=== PATIENT | male | born 1945 | race Caucasian/White ===

== ENCOUNTER → 2021-06-22 09:50 | Outpatient (BNVA) | payer MEDICARE, BC, SELFPAY | PROVIDERS: PCP Internal Medicine; Visit Provider Psychiatry & Neurology Neurology | DX: G20 Parkinson's disease (principal); F32.A Depression, unspecified; Z79.899 Other long term (current) drug therapy | CPT/HCPCS: 99212 ==

== ENCOUNTER → 2021-12-21 09:16 | Outpatient (BNVA) | payer MEDICARE, BC, SELFPAY | PROVIDERS: PCP Internal Medicine; Visit Provider Psychiatry & Neurology Neurology | DX: G20 Parkinson's disease (principal); F32.A Depression, unspecified | CPT/HCPCS: 99212 ==

== ENCOUNTER → 2022-06-28 09:17 | Outpatient (BNVA) | payer MEDICARE, BC, SELFPAY | PROVIDERS: PCP Internal Medicine; Visit Provider Psychiatry & Neurology Neurology | DX: G20 Parkinson's disease (principal); F32.A Depression, unspecified | CPT/HCPCS: 99212 ==

== ENCOUNTER 2022-10-31 08:55 | Outpatient (AMB) | payer MEDICARE, BC, SELFPAY ==
--- NOTE | 2022-10-31 09:04 | A.OFFVIS_ITS ---
Intake Vital Signs 10/31/22 09:05 Height 6 ft Weight 218 lb 4 oz BMI 29.6 BP 124/88 Blood Pressure Location Rt brachial Position Sitting Pulse 63 Pulse Source Pulse Oximeter Pulse Oximetry (%) 96 Intake Visit Reasons: 4m follow up Parkinson's-lvm Intake Note: Patient presents for 4 month follow up Allergies No Known Allergies Allergy (Verified 10/31/22 09:06) Medication List - Last Reconciled 10/31/22 by Nadeen Dick MD aspirin 81 mg PO DAILY carbidopa-levodopa 25-100 mg (Sinemet) 1.5 tabs PO QID 90 days hydrochlorothiazide 25 mg PO DAILY simvastatin 20 mg PO BEDTIME valsartan-hydrochlorothiazide 320-25 mg 1 tab PO DAILY vitamin B complex (B Complex-Vitamin B12 tablet) 1 tab PO DAILY HPI HPI Comments History of Present Illness Details 77-year-old male with 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 Mood is stable . He has mild word finding issues. He has noticed mild increase in his tremors on his right upper extremity. The tremors are mostly at rest but can be with posture and action as well. But it does not bother him or affect his ADLs. He also reports of feeling of loss of balance when turning quickly. No falls. He denies any trouble with speech, with walking, he exercises regularly. He denies any REM behavior disorder. He denies any trouble with his dressing or showering or using the utensils. he has mild trouble with handwriting. He has denies any trouble with a drooling. No falls he walks 2-3 miles a day he denies history of mood disorder however it last winter according to his he was mildly depressed he did not take any medications. He denies any change in bowel movements denies constipation. He has mild memory issues but his is not concerned. [facility] Medical History Depression GERD (gastroesophageal reflux disease) Herpes zoster HTN (hypertension) Hyperlipemia Parkinson's disease Prediabetes Vitamin D deficiency Surgical History No pertinent past surgical history Family History Mother HTN (hypertension) Borderline diabetes Social History Household Members: Spouse Household Members Other:: Sussy- Alcohol intake: current Alcohol intake frequency: a few times a week Alcohol type: beer Patient Tobacco Use Status: Never used Tobacco Current occupational status: retired Physical Exam Vital Signs: Last Vital Signs Pulse 63 10/31/22 09:05 BP 124/88 10/31/22 09:05 Pulse Ox 96 10/31/22 09:05 BMI result Body Mass Index 29.6 Const Orientation/consciousness: patient oriented x3 Neuro Other: UPDRS - 3 Speech 0-normal 1-Slight loss of expression,diction or volume 2.Monotone,slurred but understandable,moderately impaired 3.Marked impairment,difficult to understand 4.Unintelligible Facial expression 0-normal 1-Minimal hypomimia, poker face 2-Slight but definite abnormal diminution of facial expression 3-Moderate hypomimia,lips parted some of the time 4-Masked or fixed facies withs evere loss of facialexpression, lips parted more than 1/4 inch Rest Tremors( head, Upper, lower ) 0- absent 1-Slight and infrequent 2-Mild in amplitude and persistent 3-Moderate in amplitude and present most of the time- Right UE 4-Marked amplitude and present most of the time Action and Postural tremors 0-none 1-Slight with action 2-Moderate with action- RUE 3-Moderate with posture and action 4-Marked , interferes with feeding Rigidity 0-Absent 1-Slight or detectable only when activated by mirror movements 2-Mild to Moderate-RUE 3-Marked, but full ROM achieved 4-Severe, range of motion achieved with difficulty Finger Taps 0-normal 1-Mild slowing an d or reduction in amplitude- R>L 2-Moderately impaired. Early fatiguing and occasional arrests in movement 3-Severely impaired. Frequent hesitation in initiating movements or arrests in ongoing movement. 4-can barely perform the task Hand movements 0-normal 1-mild slowing and or reduction in amplitude r>L 2-Moderately impaired.Definite and early fatiguing, may have occasional arrests in movement. 3-Severely impaired.Frequent hesitation in initiating or arrests in movement. 4-can barely perform the task Rapid Alternating Movements of Hands 0-normal 1-Mild slowing and or reduction in amplitude 2-Moderately impaired.Definite and early fatiguing. 2-Moderately impaired. Definite and early fatiguing. May have occasional arrests in movement. 3-severely impaired.Frequent hesitation in initiating movements or arrests in ongoing movement. 4-can barely perform the task Leg agility 0-normal 1-mild slowing and reduction in amplitude R>L 2-moderately impaired.Definite and early fatiguing , may have occasional arrest in movement. 3-severely impaired.Frequent hesitation in initiating movements or arrests in ongoing movement. 4-can barely perform the task Arising from a chair 0-Normal 1-Slow or may need more than 1 attempt 2-Pushes self up from arms of seat 3-Tends to fall back and may have to try more than one time,but can get up without difficulty 4-Unable to stand without help Posture 0-normal 1-slightly stooped, could be normal for an older person 2-moderately stooped posture, definitely abnormal, can be leaning to one side 3-severely stooped posture with kyphosis, can be moderately leaning to one side 4-Marked flexion with extreme abnormal posture Gait 0-normal- decreased arm swing R>L 1-walks slowly,may shuffle with short steps, but no festination or propulsion 2-walks with difficulty,but requires little or no assistance, may have short steps, festination or propulsion 3-severe, needs assistance 4-cannot walk even with assistance Postural stability 0-normal 1-retropulsion but recovers unaided 2-absence of postural response,will fail if not caught by the examiner 3-very unstable,tends to lose balance spontaneously 4-unable to stand without assistance Body bradykinesia and hypokinesia 0-none 1-minimal slowness,giving movement a deliberate character,could be normal for some persons.Possible reduced amplitude 2-Mild degree of slowness and poverty of movement or some reduced amplitude 3-moderate slowness,poverty or small amplitude of movement 4-marked slowness, poverty or small amplitude of movement. SCORE 14 General: patient oriented x3 Assessment & Plan Assessment & Plan (1) Parkinson's disease: Code(s): G20 - Parkinson's disease (2) Depression: Code(s): F32.A - Depression, unspecified Plan Carbidopa/levodopa 25/100 1.5 tabs qid Will consider adding antidepressant like Celexa or Lexapro and future for his mood disorder. Continue exercise. Medications: Refilled carbidopa-levodopa 25-100 mg (Sinemet) 1.5 tabs PO QID 540 tabs 3RF 90 days Coding Level of Care Code Est Pt Level 4 (39583) Diagnoses Parkinson's disease G20 Depression F32.A
[2022-10-31 09:05] VITALS: BP 124/88; PULSE 63; O2SAT 96; BMI 29.6
== END 2022-10-31 09:23 | disposition home or self-care (01) ==
PROVIDERS: Visit Provider Psychiatry & Neurology Neurology
DX: G20 Parkinson's disease (principal); F32.A Depression, unspecified
CPT/HCPCS: 99214

== ENCOUNTER → 2022-10-31 08:55 | Outpatient (BNVA) | payer MEDICARE, BC, SELFPAY | PROVIDERS: Visit Provider Psychiatry & Neurology Neurology | DX: G20 Parkinson's disease (principal); F32.A Depression, unspecified | CPT/HCPCS: 99212 ==

== ENCOUNTER 2023-03-07 10:20 | Outpatient (AMB) | payer MEDICARE, BC, SELFPAY ==
--- NOTE | 2023-03-07 10:39 | MHC.OFFVIS ---
Intake Vital Signs 03/07/23 10:40 Height 6 ft Weight 220 lb BMI 29.8 BP 120/78 Blood Pressure Location Lt brachial Position Sitting Respiration 16 Pulse 66 Pulse Source Pulse Oximeter Pulse Oximetry (%) 96 Oxygen Delivery Method Room Air Intake Visit Reasons: 4m follow up Parkinson's - Confirmed Intake Note: Pt presents to the office for a 4 month follow up for Parkinson's. 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 Mood is stable . He has mild word finding issues. He has noticed mild increase in his tremors on his right upper extremity. The tremors are mostly at rest but can be with posture and action as well. But it does not bother him or affect his ADLs. He also reports of feeling of loss of balance when turning quickly. No falls. He denies any trouble with speech, with walking, he exercises regularly. He denies any REM behavior disorder. He denies any trouble with his dressing or showering or using the utensils. he has mild trouble with handwriting. He has denies any trouble with a drooling. No falls he walks 2-3 miles a day he denies history of mood disorder however it last winter according to his he was mildly depressed he did not take any medications. He denies any change in bowel movements denies constipation. He has mild memory issues but his is not concerned. [facility] Medical History Herpes zoster Depression Parkinson's disease GERD (gastroesophageal reflux disease) Hyperlipemia Vitamin D deficiency Prediabetes HTN (hypertension) Surgical History No pertinent past surgical history Family History Mother HTN (hypertension) Borderline diabetes Social History Household Members: Spouse Household Members Other:: Sussy- Alcohol intake: current Alcohol intake frequency: a few times a week Alcohol type: beer Patient Tobacco Use Status: Never used Tobacco Current occupational status: retired Physical Exam Vital Signs: Last Vital Signs Pulse 66 03/07/23 10:40 Resp 16 03/07/23 10:40 BP 120/78 03/07/23 10:40 Pulse Ox 96 03/07/23 10:40 Oxygen Delivery Method Room Air 03/07/23 10:40 BMI result Body Mass Index 29.8 Const Orientation/consciousness: patient oriented x3 Neuro Other: UPDRS - 3 Speech 0-normal 1-Slight loss of expression,diction or volume 2.Monotone,slurred but understandable,moderately impaired 3.Marked impairment,difficult to understand 4.Unintelligible Facial expression 0-normal 1-Minimal hypomimia, poker face 2-Slight but definite abnormal diminution of facial expression 3-Moderate hypomimia,lips parted some of the time 4-Masked or fixed facies withs evere loss of facialexpression, lips parted more than 1/4 inch Rest Tremors( head, Upper, lower ) 0- absent 1-Slight and infrequent 2-Mild in amplitude and persistent 3-Moderate in amplitude and present most of the time- Right UE 4-Marked amplitude and present most of the time Action and Postural tremors 0-none 1-Slight with action 2-Moderate with action- RUE 3-Moderate with posture and action 4-Marked , interferes with feeding Rigidity 0-Absent 1-Slight or detectable only when activated by mirror movements 2-Mild to Moderate-RUE 3-Marked, but full ROM achieved 4-Severe, range of motion achieved with difficulty Finger Taps 0-normal 1-Mild slowing an d or reduction in amplitude- R>L 2-Moderately impaired. Early fatiguing and occasional arrests in movement 3-Severely impaired. Frequent hesitation in initiating movements or arrests in ongoing movement. 4-can barely perform the task Hand movements 0-normal 1-mild slowing and or reduction in amplitude r>L 2-Moderately impaired.Definite and early fatiguing, may have occasional arrests in movement. 3-Severely impaired.Frequent hesitation in initiating or arrests in movement. 4-can barely perform the task Rapid Alternating Movements of Hands 0-normal 1-Mild slowing and or reduction in amplitude 2-Moderately impaired.Definite and early fatiguing. 2-Moderately impaired. Definite and early fatiguing. May have occasional arrests in movement. 3-severely impaired.Frequent hesitation in initiating movements or arrests in ongoing movement. 4-can barely perform the task Leg agility 0-normal 1-mild slowing and reduction in amplitude R>L 2-moderately impaired.Definite and early fatiguing , may have occasional arrest in movement. 3-severely impaired.Frequent hesitation in initiating movements or arrests in ongoing movement. 4-can barely perform the task Arising from a chair 0-Normal 1-Slow or may need more than 1 attempt 2-Pushes self up from arms of seat 3-Tends to fall back and may have to try more than one time,but can get up without difficulty 4-Unable to stand without help Posture 0-normal 1-slightly stooped, could be normal for an older person 2-moderately stooped posture, definitely abnormal, can be leaning to one side 3-severely stooped posture with kyphosis, can be moderately leaning to one side 4-Marked flexion with extreme abnormal posture Gait 0-normal- decreased arm swing R>L 1-walks slowly,may shuffle with short steps, but no festination or propulsion 2-walks with difficulty,but requires little or no assistance, may have short steps, festination or propulsion 3-severe, needs assistance 4-cannot walk even with assistance Postural stability 0-normal 1-retropulsion but recovers unaided 2-absence of postural response,will fail if not caught by the examiner 3-very unstable,tends to lose balance spontaneously 4-unable to stand without assistance Body bradykinesia and hypokinesia 0-none 1-minimal slowness,giving movement a deliberate character,could be normal for some persons.Possible reduced amplitude 2-Mild degree of slowness and poverty of movement or some reduced amplitude 3-moderate slowness,poverty or small amplitude of movement 4-marked slowness, poverty or small amplitude of movement. SCORE 14 General: patient oriented x3 Assessment & Plan Assessment & Plan (1) Parkinson's disease: Code(s): G20 - Parkinson's disease (2) Depression: Comment: stable Code(s): F32.A - Depression, unspecified Plan Carbidopa/levodopa 25 1.5 tabs qid - does not want to increase. Will consider adding antidepressant like Celexa or Lexapro and future for his mood disorder. Continue exercise. Coding Level of Care Code Est Pt Level 4 (03491) Diagnoses Parkinson's disease G20 Depression F32.A
[2023-03-07 10:40] VITALS: BP 120/78; PULSE 66; RESP 16; O2SAT 96; BMI 29.8
== END 2023-03-07 10:50 | disposition home or self-care (01) ==
PROVIDERS: PCP Internal Medicine; Visit Provider Psychiatry & Neurology Neurology
DX: G20.A1 Parkinson's disease without dyskinesia, without mention of fluctuations (principal); F32.A Depression, unspecified
CPT/HCPCS: 99214

== ENCOUNTER → 2023-03-07 10:20 | Outpatient (BNVA) | payer MEDICARE, BC, SELFPAY | PROVIDERS: PCP Internal Medicine; Visit Provider Psychiatry & Neurology Neurology | DX: G20.A1 Parkinson's disease without dyskinesia, without mention of fluctuations (principal); F32.A Depression, unspecified | CPT/HCPCS: 99212 ==

== ENCOUNTER 2023-09-05 09:52 | Outpatient (AMB) | payer MEDICARE, BC, SELFPAY ==
--- NOTE | 2023-09-05 09:53 | A.OFFVIS_ITS ---
Vital Signs 09/05/23 09:55 Height 6 ft Weight 223 lb BMI 30.2 BP 128/80 Blood Pressure Location Rt brachial Position Sitting Respiration 16 Pulse 68 Pulse Source Pulse Oximeter Pulse Oximetry (%) 98 Oxygen Delivery Method Room Air Intake Visit Reasons: 6 mnts f/u appt - LVM Intake Note: Pt presents for 6 month follow up for Parkinsons without dyskinesia or fluctuations. Legal Mediator Required: No Allergies No Known Allergies Allergy (Verified 09/05/23 09:54) HPI Comments Details: 77-year-old male with 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 He has noticed mild worsening of his symptoms.His gait is slower.He golfs gardens and walks . Mood is stable . He has mild word finding issues. He has noticed mild increase in his tremors on his right upper extremity. The tremors are mostly at rest but can be with posture and action as well. But it does not bother him or affect his ADLs. He also reports of feeling of loss of balance when turning quickly. No falls. He denies any trouble with speech, with walking, he exercises regularly. He denies any REM behavior disorder. He denies any trouble with his dressing or showering or using the utensils. he has mild trouble with handwriting. He has denies any trouble with a drooling. No falls he walks 2-3 miles a day he denies history of mood disorder however it last winter according to his he was mildly depressed he did not take any medications. He denies any change in bowel movements denies constipation. He has mild memory issues but his is not concerned. [facility] Medical History Parkinson's disease without dyskinesia or fluctuating manifestations Herpes zoster Depression GERD (gastroesophageal reflux disease) Hyperlipemia Vitamin D deficiency Prediabetes HTN (hypertension) Surgical History No pertinent past surgical history Family History Mother HTN (hypertension) Borderline diabetes Social History Household Members: Spouse Household Members Other:: Susys- Alcohol intake: current Alcohol intake frequency: a few times a week Alcohol type: beer Patient Tobacco Use Status: Never used Tobacco Current occupational status: retired Physical Exam Vital Signs: Last Vital Signs Pulse 68 09/05/23 09:55 Resp 16 09/05/23 09:55 BP 128/80 09/05/23 09:55 Pulse Ox 98 09/05/23 09:55 Oxygen Delivery Method Room Air 09/05/23 09:55 BMI result Body Mass Index 30.2 Const Orientation/consciousness: patient oriented x3 Neuro Other: UPDRS - 3 Speech 0-normal 1-Slight loss of expression,diction or volume 2.Monotone,slurred but understandable,moderately impaired 3.Marked impairment,difficult to understand 4.Unintelligible Facial expression 0-normal 1-Minimal hypomimia, poker face 2-Slight but definite abnormal diminution of facial expression 3-Moderate hypomimia,lips parted some of the time 4-Masked or fixed facies withs evere loss of facialexpression, lips parted more than 1/4 inch Rest Tremors( head, Upper, lower ) 0- absent 1-Slight and infrequent 2-Mild in amplitude and persistent 3-Moderate in amplitude and present most of the time- Right UE 4-Marked amplitude and present most of the time Action and Postural tremors 0-none 1-Slight with action 2-Moderate with action- RUE 3-Moderate with posture and action 4-Marked , interferes with feeding Rigidity 0-Absent 1-Slight or detectable only when activated by mirror movements 2-Mild to Moderate-RUE 3-Marked, but full ROM achieved 4-Severe, range of motion achieved with difficulty Finger Taps 0-normal 1-Mild slowing an d or reduction in amplitude- R>L 2-Moderately impaired. Early fatiguing and occasional arrests in movement 3-Severely impaired. Frequent hesitation in initiating movements or arrests in ongoing movement. 4-can barely perform the task Hand movements 0-normal 1-mild slowing and or reduction in amplitude r>L 2-Moderately impaired.Definite and early fatiguing, may have occasional arrests in movement. 3-Severely impaired.Frequent hesitation in initiating or arrests in movement. 4-can barely perform the task Rapid Alternating Movements of Hands 0-normal 1-Mild slowing and or reduction in amplitude 2-Moderately impaired.Definite and early fatiguing. 2-Moderately impaired. Definite and early fatiguing. May have occasional arrests in movement. 3-severely impaired.Frequent hesitation in initiating movements or arrests in ongoing movement. 4-can barely perform the task Leg agility 0-normal 1-mild slowing and reduction in amplitude R>L 2-moderately impaired.Definite and early fatiguing , may have occasional arrest in movement. 3-severely impaired.Frequent hesitation in initiating movements or arrests in ongoing movement. 4-can barely perform the task Arising from a chair 0-Normal 1-Slow or may need more than 1 attempt 2-Pushes self up from arms of seat 3-Tends to fall back and may have to try more than one time,but can get up without difficulty 4-Unable to stand without help Posture 0-normal 1-slightly stooped, could be normal for an older person 2-moderately stooped posture, definitely abnormal, can be leaning to one side 3-severely stooped posture with kyphosis, can be moderately leaning to one side 4-Marked flexion with extreme abnormal posture Gait 0-normal- decreased arm swing R>L 1-walks slowly,may shuffle with short steps, but no festination or propulsion 2-walks with difficulty,but requires little or no assistance, may have short steps, festination or propulsion 3-severe, needs assistance 4-cannot walk even with assistance Postural stability 0-normal 1-retropulsion but recovers unaided 2-absence of postural response,will fail if not caught by the examiner 3-very unstable,tends to lose balance spontaneously 4-unable to stand without assistance Body bradykinesia and hypokinesia 0-none 1-minimal slowness,giving movement a deliberate character,could be normal for some persons.Possible reduced amplitude 2-Mild degree of slowness and poverty of movement or some reduced amplitude 3-moderate slowness,poverty or small amplitude of movement 4-marked slowness, poverty or small amplitude of movement. SCORE 14 General: patient oriented x3 Assessment & Plan Assessment & Plan (1) Parkinson's disease without dyskinesia or fluctuating manifestations: Code(s): G20.A1 - Parkinson's disease without dyskinesia, without mention of fluctuations Category: Medical (2) Depression: Comment: stable Code(s): F32.A - Depression, unspecified Category: Medical Plan Carbidopa/levodopa 25/100 1.5 tabs qid - does not want to increase. Will consider adding antidepressant like Celexa or Lexapro and future for his mood disorder. Continue exercise. Coding Level of Care Code Est Pt Level 4 (65383) Complex EM visit Add On G2211 Diagnoses Parkinson's disease without dyskinesia or fluctuating manifestations G20.A1 Depression F32.A
[2023-09-05 09:55] VITALS: BP 128/80; PULSE 68; RESP 16; O2SAT 98; BMI 30.2
== END 2023-09-05 10:27 | disposition home or self-care (01) ==
PROVIDERS: PCP Internal Medicine; Visit Provider Psychiatry & Neurology Neurology
DX: G20.A1 Parkinson's disease without dyskinesia, without mention of fluctuations (principal); F32.A Depression, unspecified
CPT/HCPCS: 99214; G2211

== ENCOUNTER → 2023-09-05 09:52 | Outpatient (BNVA) | payer MEDICARE, BC, SELFPAY | PROVIDERS: PCP Internal Medicine; Visit Provider Psychiatry & Neurology Neurology | DX: G20.A1 Parkinson's disease without dyskinesia, without mention of fluctuations (principal); F32.A Depression, unspecified; Z79.899 Other long term (current) drug therapy | CPT/HCPCS: 99212 ==

== ENCOUNTER 2024-03-21 09:17 | Outpatient (AMB) | payer MEDICARE, BC, SELFPAY ==
--- NOTE | 2024-03-21 09:24 | A.OFFVIS_ITS ---
Vital Signs 03/21/24 09:25 Height 6 ft Weight 217 lb BMI 29.4 BP 132/78 Blood Pressure Location Rt brachial Position Sitting Intake Visit Reasons: 6 mnts f/u appt Intake Note: Patient presents for 6 month follow up Allergies No Known Allergies Allergy (Verified 03/21/24 09:31) Medication List - Last Reconciled 03/21/24 by Nadeen Dick MD aspirin 81 mg PO DAILY carbidopa-levodopa 25-100 mg (Sinemet) 1.5 tabs PO QID 90 days famotidine 20 mg PO BEDTIME hydrochlorothiazide 25 mg PO DAILY simvastatin 20 mg PO BEDTIME valsartan-hydrochlorothiazide 320-25 mg 1 tab PO DAILY vitamin B complex (B Complex-Vitamin B12 tablet) 1 tab PO DAILY HPI Comments Details: 78-year-old male with 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 He has noticed mild worsening of his symptoms.He is more tired .No major change His gait is slower.He golfs gardens and walks . Mood is stable . He has mild word finding issues. He has noticed mild increase in his tremors on his right upper extremity. The tremors are mostly at rest but can be with posture and action as well. But it does not bother him or affect his ADLs. He also reports of feeling of loss of balance when turning quickly. No falls. He denies any trouble with speech, with walking, he exercises regularly. He denies any REM behavior disorder. He denies any trouble with his dressing or showering or using the utensils. he has mild trouble with handwriting. He has denies any trouble with a drooling. No falls he walks 2-3 miles a day he denies history of mood disorder however it last winter according to his he was mildly depressed he did not take any medications. He denies any change in bowel movements denies constipation. He has mild memory issues but his is not concerned. [facility], [facility] Medical History Parkinson's disease without dyskinesia or fluctuating manifestations Herpes zoster Depression GERD (gastroesophageal reflux disease) Hyperlipemia Vitamin D deficiency Prediabetes HTN (hypertension) Surgical History No pertinent past surgical history Family History Mother HTN (hypertension) Borderline diabetes Social History Household Members: Spouse Household Members Other:: Sussy- Alcohol intake: current Alcohol intake frequency: a few times a week Alcohol type: beer Patient Tobacco Use Status: Never used Tobacco Current occupational status: retired Physical Exam Vital Signs: Last Vital Signs BP 132/78 03/21/24 09:25 BMI result Body Mass Index 29.4 Const Orientation/consciousness: patient oriented x3 Neuro Other: UPDRS - 3 Speech 0-normal 1-Slight loss of expression,diction or volume 2.Monotone,slurred but understandable,moderately impaired 3.Marked impairment,difficult to understand 4.Unintelligible Facial expression 0-normal 1-Minimal hypomimia, poker face 2-Slight but definite abnormal diminution of facial expression 3-Moderate hypomimia,lips parted some of the time 4-Masked or fixed facies withs evere loss of facialexpression, lips parted more than 1/4 inch Rest Tremors( head, Upper, lower ) 0- absent 1-Slight and infrequent 2-Mild in amplitude and persistent 3-Moderate in amplitude and present most of the time- Right UE 4-Marked amplitude and present most of the time Action and Postural tremors 0-none 1-Slight with action 2-Moderate with action- RUE 3-Moderate with posture and action 4-Marked , interferes with feeding Rigidity 0-Absent 1-Slight or detectable only when activated by mirror movements 2-Mild to Moderate-RUE 3-Marked, but full ROM achieved 4-Severe, range of motion achieved with difficulty Finger Taps 0-normal 1-Mild slowing an d or reduction in amplitude- R>L 2-Moderately impaired. Early fatiguing and occasional arrests in movement 3-Severely impaired. Frequent hesitation in initiating movements or arrests in ongoing movement. 4-can barely perform the task Hand movements 0-normal 1-mild slowing and or reduction in amplitude r>L 2-Moderately impaired.Definite and early fatiguing, may have occasional arrests in movement. 3-Severely impaired.Frequent hesitation in initiating or arrests in movement. 4-can barely perform the task Rapid Alternating Movements of Hands 0-normal 1-Mild slowing and or reduction in amplitude 2-Moderately impaired.Definite and early fatiguing. 2-Moderately impaired. Definite and early fatiguing. May have occasional arrests in movement. 3-severely impaired.Frequent hesitation in initiating movements or arrests in ongoing movement. 4-can barely perform the task Leg agility 0-normal 1-mild slowing and reduction in amplitude R>L 2-moderately impaired.Definite and early fatiguing , may have occasional arrest in movement. 3-severely impaired.Frequent hesitation in initiating movements or arrests in ongoing movement. 4-can barely perform the task Arising from a chair 0-Normal 1-Slow or may need more than 1 attempt 2-Pushes self up from arms of seat 3-Tends to fall back and may have to try more than one time,but can get up without difficulty 4-Unable to stand without help Posture 0-normal 1-slightly stooped, could be normal for an older person 2-moderately stooped posture, definitely abnormal, can be leaning to one side 3-severely stooped posture with kyphosis, can be moderately leaning to one side 4-Marked flexion with extreme abnormal posture Gait 0-normal- decreased arm swing R>L 1-walks slowly,may shuffle with short steps, but no festination or propulsion 2-walks with difficulty,but requires little or no assistance, may have short steps, festination or propulsion 3-severe, needs assistance 4-cannot walk even with assistance Postural stability 0-normal 1-retropulsion but recovers unaided 2-absence of postural response,will fail if not caught by the examiner 3-very unstable,tends to lose balance spontaneously 4-unable to stand without assistance Body bradykinesia and hypokinesia 0-none 1-minimal slowness,giving movement a deliberate character,could be normal for some persons.Possible reduced amplitude 2-Mild degree of slowness and poverty of movement or some reduced amplitude 3-moderate slowness,poverty or small amplitude of movement 4-marked slowness, poverty or small amplitude of movement. SCORE 14 General: patient oriented x3 Assessment & Plan Assessment & Plan (1) Parkinson's disease without dyskinesia or fluctuating manifestations: Code(s): G20.A1 - Parkinson's disease without dyskinesia, without mention of fluctuations Category: Medical (2) Depression: Comment: stable Code(s): F32.A - Depression, unspecified Category: Medical Qualifiers: Depression Type: other depression Qualified Code(s): F32.89 - Other specified depressive episodes Plan Carbidopa/levodopa 25/100 1.5 tabs qid - does not want to increase. Will consider adding antidepressant like Celexa or Lexapro and future for his mood disorder. Continue exercise. Medications: Refilled carbidopa-levodopa 25-100 mg (Sinemet) 1.5 tabs PO QID 90 days 540 tabs 3RF Coding Level of Care Code Est Pt Level 4 (83814) Complex EM visit Add On G2211 Diagnoses Parkinson's disease without dyskinesia or fluctuating manifestations G20.A1 Other depression F32.89 Depression Type: other depression
[2024-03-21 09:25] VITALS: BP 132/78; BMI 29.4
== END 2024-03-21 10:03 | disposition home or self-care (01) ==
PROVIDERS: PCP Internal Medicine; Visit Provider Psychiatry & Neurology Neurology
DX: G20.A1 Parkinson's disease without dyskinesia, without mention of fluctuations (principal); F32.89 Other specified depressive episodes
CPT/HCPCS: 99214; G2211

== ENCOUNTER → 2024-03-21 09:17 | Outpatient (BNVA) | payer MEDICARE, BC, SELFPAY | PROVIDERS: PCP Internal Medicine; Visit Provider Psychiatry & Neurology Neurology | DX: G20.A1 Parkinson's disease without dyskinesia, without mention of fluctuations (principal); F32.89 Other specified depressive episodes | CPT/HCPCS: 99212 ==

== ENCOUNTER 2024-08-21 09:15 | Outpatient (AMB) | payer MEDICARE, BC, SELFPAY ==
[2024-08-21 09:20] VITALS: BP 122/74
--- NOTE | 2024-08-21 09:20 | A.OFFVIS_ITS ---
Vital Signs 08/21/24 09:20 Height 6 ft Weight 221 lb BMI 30.0 BP 122/74 Blood Pressure Location Rt brachial Position Sitting Intake Visit Reasons: 6 mnts Intake Note: Patient following up for parkinsons disease on carbidopa levodopa Allergies No Known Allergies Allergy (Verified 08/21/24 09:21) Medication List - Last Reconciled 08/21/24 by Nadeen Dick MD aspirin 81 mg PO DAILY carbidopa-levodopa 25-100 mg (Sinemet) 1.5 tabs PO QID 90 days famotidine 20 mg PO BEDTIME hydrochlorothiazide 25 mg PO DAILY simvastatin 20 mg PO BEDTIME valsartan-hydrochlorothiazide 320-25 mg 1 tab PO DAILY vitamin B complex (B Complex-Vitamin B12 tablet) 1 tab PO DAILY HPI Comments Details: 78-year-old male with 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 He has noticed mild worsening of his symptoms.He is more tired . His right hand tremors are worse both at rest and action . he is unable to drink or eat with his right hand His gait is slower.He golfs gardens and walks . Mood is stable . He has mild word finding issues. He also reports of feeling of loss of balance when turning quickly. No falls. He denies any trouble with speech, with walking, he exercises regularly. He denies any REM behavior disorder. He denies any trouble with his dressing or showering or using the utensils. he has mild trouble with handwriting. He has d enies any trouble with a drooling. No falls he walks 2-3 miles a day he denies history of mood disorder however it last winter according to his he was mildly depressed he did not take any medications. He denies any change in bowel movements denies constipation. He has mild memory issues but his is not concerned. [facility] Medical History (Updated 08/21/24 @ 09:53 by Nadeen Dick MD) Benign essential tremor Parkinson's disease without dyskinesia or fluctuating manifestations Herpes zoster Depression GERD (gastroesophageal reflux disease) Hyperlipemia Vitamin D deficiency Prediabetes HTN (hypertension) Surgical History No pertinent past surgical history Family History Mother HTN (hypertension) Borderline diabetes Social History Household Members: Spouse Household Members Other:: Sussy- Alcohol intake: current Alcohol intake frequency: a few times a week Alcohol type: beer Patient Tobacco Use Status: Never used Tobacco Current occupational status: retired Physical Exam Vital Signs: Last Vital Signs BP 122/74 08/21/24 09:20 BMI result Body Mass Index 30.0 Const Orientation/consciousness: patient oriented x3 Neuro Other: UPDRS - 3 Speech 0-normal 1-Slight loss of expression,diction or volume 2.Monotone,slurred but understandable,moderately impaired 3.Marked impairment,difficult to understand 4.Unintelligible Facial expression 0-normal 1-Minimal hypomimia, poker face 2-Slight but definite abnormal diminution of facial expression 3-Moderate hypomimia,lips parted some of the time 4-Masked or fixed facies withs evere loss of facialexpression, lips parted more than 1/4 inch Rest Tremors( head, Upper, lower ) 0- absent 1-Slight and infrequent 2-Mild in amplitude and persistent 3-Moderate in amplitude and present most of the time- Right UE 4-Marked amplitude and present most of the time Action and Postural tremors 0-none 1-Slight with action 2-Moderate with action- RUE 3-Moderate with posture and action 4-Marked , interferes with feeding Rigidity 0-Absent 1-Slight or detectable only when activated by mirror movements 2-Mild to Moderate-RUE 3-Marked, but full ROM achieved 4-Severe, range of motion achieved with difficulty Finger Taps 0-normal 1-Mild slowing an d or reduction in amplitude- R>L 2-Moderately impaired. Early fatiguing and occasional arrests in movement 3-Severely impaired. Frequent hesitation in initiating movements or arrests in ongoing movement. 4-can barely perform the task Hand movements 0-normal 1-mild slowing and or reduction in amplitude r>L 2-Moderately impaired.Definite and early fatiguing, may have occasional arrests in movement. 3-Severely impaired.Frequent hesitation in initiating or arrests in movement. 4-can barely perform the task Rapid Alternating Movements of Hands 0-normal 1-Mild slowing and or reduction in amplitude 2-Moderately impaired.Definite and early fatiguing. 2-Moderately impaired. Definite and early fatiguing. May have occasional arrests in movement. 3-severely impaired.Frequent hesitation in initiating movements or arrests in ongoing movement. 4-can barely perform the task Leg agility 0-normal 1-mild slowing and reduction in amplitude R>L 2-moderately impaired.Definite and early fatiguing , may have occasional arrest in movement. 3-severely impaired.Frequent hesitation in initiating movements or arrests in ongoing movement. 4-can barely perform the task Arising from a chair 0-Normal 1-Slow or may need more than 1 attempt 2-Pushes self up from arms of seat 3-Tends to fall back and may have to try more than one time,but can get up without difficulty 4-Unable to stand without help Posture 0-normal 1-slightly stooped, could be normal for an older person 2-moderately stooped posture, definitely abnormal, can be leaning to one side 3-severely stooped posture with kyphosis, can be moderately leaning to one side 4-Marked flexion with extreme abnormal posture Gait 0-normal- decreased arm swing R>L 1-walks slowly,may shuffle with short steps, but no festination or propulsion 2-walks with difficulty,but requires little or no assistance, may have short steps, festination or propulsion 3-severe, needs assistance 4-cannot walk even with assistance Postural stability 0-normal 1-retropulsion but recovers unaided 2-absence of postural response,will fail if not caught by the examiner 3-very unstable,tends to lose balance spontaneously 4-unable to stand without assistance Body bradykinesia and hypokinesia 0-none 1-minimal slowness,giving movement a deliberate character,could be normal for some persons.Possible reduced amplitude 2-Mild degree of slowness and poverty of movement or some reduced amplitude 3-moderate slowness,poverty or small amplitude of movement 4-marked slowness, poverty or small amplitude of movement. SCORE 14 General: patient oriented x3 Assessment & Plan Assessment & Plan (1) Parkinson's disease without dyskinesia or fluctuating manifestations: Code(s): G20.A1 - Parkinson's disease without dyskinesia, without mention of fluctuations Category: Medical (2) Depression: Comment: stable Code(s): F32.A - Depression, unspecified Category: Medical Qualifiers: Depression Type: other depression Qualified Code(s): F32.89 - Other specified depressive episodes (3) Benign essential tremor: Code(s): G25.0 - Essential tremor Category: Medical Plan Carbidopa/levodopa 25/100 2 tabs qid . Will consider adding antidepressant like Celexa or Lexapro and future for his mood disorder. Continue exercise. I will trial him on RUTH trio therapy for tremors If he does not respond he will be a good candidate for DBS or MRI guided US therapy Medications: Changed From carbidopa-levodopa 25-100 mg (Sinemet) 1.5 tabs PO QID 90 days 540 tabs 3RF To carbidopa-levodopa 25-100 mg (Sinemet) 2 tabs PO QID 90 days 720 tabs 3RF Coding Level of Care Code Est Pt Level 4 (68268) Complex EM visit Add On G2211 Diagnoses Parkinson's disease without dyskinesia or fluctuating manifestations G20.A1 Other depression F32.89 Depression Type: other depression Benign essential tremor G25.0
--- OUTSIDE RECORDS SUMMARY | 2024-08-21 09:40 | XMS_ITS | Clinical Summary ---
Author Organization [facility] Address [address] [place] [address] Care Team Providers Care Medical Coding Auditor Name Role Phone Meño Heck MD Primary Care Provider [phone] Social History Tobacco Use Types Packs/Day Years Used Date Smoking Tobacco: Never Assessed Sex and Gender Information Value Date Recorded Sex Assigned at Not on file Legal Sex Male 4:39 AM EDT Gender Identity Not on file Sexual Orientation Not on file Plan of Treatment Health Maintenance Due Date Last Done Comments DTaP/Tdap/Td (1 - Tdap) 10/04/1961 Pneumococcal 50+ years (1 of 1 - PCV) 10/04/1993 Zoster (Shingrix) (1 of 2) 10/04/1993 RSV (1 - 1-dose 75+ series) 10/04/2018 COVID-19 Vaccine ( - 2023-2 5 season) 2023 Influenza (Season Ended) 2024 HPV Vaccine Aged Out No longer eligi ble based on patient's age to complete this topic Hep A Aged Out No longer eligi ble based on patient's age to complete this topic Hep B Aged Out No longer eligi ble based on patient's age to complete this topic Hib Aged Out No longer eligi ble based on patient's age to complete this topic Meningococcal ACWY Aged Out No longer eligible based on patient's age to complete this topic Zoster (Zostavax) Discontinued Insurance [facility] MEDICARE [facility] Care Teams Medical Coding Auditor Relationship Specialty Start Date End Date Meño Heck MD [address] [place] [id number] PCP - General 09/17/08
== END 2024-08-21 10:00 | disposition home or self-care (01) ==
LOC: HO.HSMS 09:17
PROVIDERS: PCP Internal Medicine; Visit Provider Psychiatry & Neurology Neurology
DX: G20.A1 Parkinson's disease without dyskinesia, without mention of fluctuations (principal); F32.89 Other specified depressive episodes; G25.0 Essential tremor
CPT/HCPCS: 99214; G2211

== ENCOUNTER → 2024-08-21 09:15 | Outpatient (BNVA) | payer MEDICARE, BC, SELFPAY | PROVIDERS: PCP Internal Medicine; Visit Provider Psychiatry & Neurology Neurology | DX: G20.A1 Parkinson's disease without dyskinesia, without mention of fluctuations (principal); F32.89 Other specified depressive episodes; G25.0 Essential tremor | CPT/HCPCS: 99212 ==

== ENCOUNTER 2025-02-05 09:53 | Outpatient (AMB) | payer MEDICARE, BC, SELFPAY ==
[2025-02-05 09:50] VITALS: BP 130/84; PULSE 76; O2SAT 96; BMI 29.1
--- NOTE | 2025-02-05 09:50 | A.OFFVIS_ITS ---
Vital Signs 02/05/25 09:50 Height 6 ft Weight 214 lb 6 oz BMI 29.1 BP 130/84 Blood Pressure Location Lt brachial Position Sitting Pulse 76 Pulse Source Pulse Oximeter Pulse Oximetry (%) 96 Oxygen Delivery Method Room Air Intake Visit Reasons: 3 mo follow up Intake Note: Follow up Parkinson's disease without dyskinesia or fluctuating manifestations, Benign Essential tremor and depression Outside Repairer Special Required: No Accompanied by: Self / Same As Patient Allergies No Known Allergies Allergy (Verified 02/05/25 09:50) Medication List - Last Reconciled 02/05/25 by Nadeen Dick MD aspirin 81 mg PO DAILY carbidopa-levodopa 25-100 mg (Sinemet) 2 tabs PO QID 90 days cholecalciferol (vitamin D3) 25 mcg PO DAILY famotidine 20 mg PO BEDTIME hydrochlorothiazide 25 mg PO DAILY simvastatin 20 mg PO BEDTIME valsartan-hydrochlorothiazide 320-25 mg 1 tab PO DAILY vitamin B complex (B Complex-Vitamin B12 tablet) 1 tab PO DAILY HPI Comments Details: 79-year-old male with 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 He used RUTH for 3 mths 2 times a day and does not feel it helps him He is happy with his medications now. He is independent in all his ADLs His right hand tremors both at rest and action . he is trouble to drink or eat with his right hand , he uses his left ahnd His gait is OK.He golfs gardens and walks . Mood is stable . He has mild word finding issues. He also reports of feeling of loss of balance when turning quickly. No falls. He denies any trouble with speech, with walking, he exercises regularly. He denies any REM behavior disorder. He denies any trouble with his dressing or showering or using the utensils. he has mild trouble with handwriting. He has denies any trouble with a drooling. No falls he walks 2-3 miles a day he denies history of mood disorder however it last winter according to his he was mildly depressed he did not take any medications. He denies any change in bowel movements denies constipation. He has mild memory issues but his is not concerned. [facility] Medical History Benign essential tremor Parkinson's disease without dyskinesia or fluctuating manifestations Herpes zoster Depression GERD (gastroesophageal reflux disease) Hyperlipemia Vitamin D deficiency Prediabetes HTN (hypertension) Surgical History No pertinent past surgical history Family History Mother HTN (hypertension) Borderline diabetes Social History Household Members: Spouse Household Members Other:: Sussy- Alcohol intake: current Alcohol intake frequency: a few times a week Alcohol type: beer Patient Tobacco Use Status: Never used Tobacco Current occupational status: retired Physical Exam Vital Signs: Last Vital Signs Pulse 76 02/05/25 09:50 BP 130/84 02/05/25 09:50 Pulse Ox 96 02/05/25 09:50 Oxygen Delivery Method Room Air 02/05/25 09:50 BMI result Body Mass Index 29.1 Const Orientation/consciousness: patient oriented x3 Neuro Other: UPDRS - 3 Speech 0-normal 1-Slight loss of expression,diction or volume 2.Monotone,slurred but understandable,moderately impaired 3.Marked impairment,difficult to understand 4.Unintelligible Facial expression 0-normal 1-Minimal hypomimia, poker face 2-Slight but definite abnormal diminution of facial expression 3-Moderate hypomimia,lips parted some of the time 4-Masked or fixed facies withs evere loss of facialexpression, lips parted more than 1/4 inch Rest Tremors( head, Upper, lower ) 0- absent 1-Slight and infrequent 2-Mild in amplitude and persistent 3-Moderate in amplitude and present most of the time- Right UE 4-Marked amplitude and present most of the time Action and Postural tremors 0-none 1-Slight with action 2-Moderate with action- RUE 3-Moderate with posture and action 4-Marked , interferes with feeding Rigidity 0-Absent 1-Slight or detectable only when activated by mirror movements 2-Mild to Moderate-RUE 3-Marked, but full ROM achieved 4-Severe, range of motion achieved with difficulty Finger Taps 0-normal 1-Mild slowing an d or reduction in amplitude- R>L 2-Moderately impaired. Early fatiguing and occasional arrests in movement 3-Severely impaired. Frequent hesitation in initiating movements or arrests in ongoing movement. 4-can barely perform the task Hand movements 0-normal 1-mild slowing and or reduction in amplitude r>L 2-Moderately impaired.Definite and early fatiguing, may have occasional arrests in movement. 3-Severely impaired.Frequent hesitation in initiating or arrests in movement. 4-can barely perform the task Rapid Alternating Movements of Hands 0-normal 1-Mild slowing and or reduction in amplitude 2-Moderately impaired.Definite and early fatiguing. 2-Moderately impaired. Definite and early fatiguing. May have occasional arrests in movement. 3-severely impaired.Frequent hesitation in initiating movements or arrests in ongoing movement. 4-can barely perform the task Leg agility 0-normal 1-mild slowing and reduction in amplitude R>L 2-moderately impaired.Definite and early fatiguing , may have occasional arrest in movement. 3-severely impaired.Frequent hesitation in initiating movements or arrests in ongoing movement. 4-can barely perform the task Arising from a chair 0-Normal 1-Slow or may need more than 1 attempt 2-Pushes self up from arms of seat 3-Tends to fall back and may have to try more than one time,but can get up without difficulty 4-Unable to stand without help Posture 0-normal 1-slightly stooped, could be normal for an older person 2-moderately stooped posture, definitely abnormal, can be leaning to one side 3-severely stooped posture with kyphosis, can be moderately leaning to one side 4-Marked flexion with extreme abnormal posture Gait 0-normal- decreased arm swing R>L 1-walks slowly,may shuffle with short steps, but no festination or propulsion 2-walks with difficulty,but requires little or no assistance, may have short steps, festination or propulsion 3-severe, needs assistance 4-cannot walk even with assistance Postural stability 0-normal 1-retropulsion but recovers unaided 2-absence of postural response,will fail if not caught by the examiner 3-very unstable,tends to lose balance spontaneously 4-unable to stand without assistance Body bradykinesia and hypokinesia 0-none 1-minimal slowness,giving movement a deliberate character,could be normal for some persons.Possible reduced amplitude 2-Mild degree of slowness and poverty of movement or some reduced amplitude 3-moderate slowness,poverty or small amplitude of movement 4-marked slowness, poverty or small amplitude of movement. SCORE 14 General: patient oriented x3 Assessment & Plan Assessment & Plan (1) Parkinson's disease without dyskinesia or fluctuating manifestations: Code(s): G20.A1 - Parkinson's disease without dyskinesia, without mention of fluctuations Category: Medical (2) Depression: Comment: stable Code(s): F32.A - Depression, unspecified Category: Medical Qualifiers: Depression Type: other depression Qualified Code(s): F32.89 - Other specified depressive episodes (3) Benign essential tremor: Code(s): G25.0 - Essential tremor Category: Medical Plan Carbidopa/levodopa 25/100 2 tabs qid . He is happy with his current control and does not want to add any new meds now. Will consider adding antidepressant like Celexa or Lexapro and future for his mood disorder. Continue exercise. RUTH trio therapy for tremors- he feels it does not help If he does not respond he will be a good candidate for DBS or MRI guided US therapy Medications: Refilled 2 carbidopa-levodopa 25-100 mg (Sinemet) 2 tabs PO QID 720 tabs 3RF 90 days Coding Level of Care Code Est Pt Level 4 (24590) Complex EM visit Add On G2211 Diagnoses Parkinson's disease without dyskinesia or fluctuating manifestations G20.A1 Other depression F32.89 Depression Type: other depression Benign essential tremor G25.0
== END 2025-02-05 10:24 | disposition home or self-care (01) ==
LOC: HO.HSMS 09:54
PROVIDERS: PCP Internal Medicine; Visit Provider Psychiatry & Neurology Neurology
DX: G20.A1 Parkinson's disease without dyskinesia, without mention of fluctuations (principal); F32.89 Other specified depressive episodes; G25.0 Essential tremor
CPT/HCPCS: 99214; G2211

== ENCOUNTER → 2025-02-05 09:53 | Outpatient (BNVA) | payer MEDICARE, BC, SELFPAY | PROVIDERS: PCP Internal Medicine; Visit Provider Psychiatry & Neurology Neurology | DX: G20.A1 Parkinson's disease without dyskinesia, without mention of fluctuations (principal); G25.0 Essential tremor; F02.A3 Dementia in other diseases classified elsewhere, mild, with mood disturbance | CPT/HCPCS: 99212 ==